=== PATIENT | male | born 1975 | race Caucasian/White ===

== ENCOUNTER 2017-01-30 20:02 | Emergency (ER) | payer BC ==
--- NOTE | 2017-01-30 20:17 | UC ---
Upper Extremity HPI - HPI Summary HPI Summary: 41 year old male presents with left shoulder pain. - History of Current Complaint Chief Complaint: UCUpperExtremity Stated Complaint: LT SHOULDER COMPLAINT Time Seen by Provider: 01/30/17 20:10 - Allergies/Home Medications Allergies/Adverse Reactions: Allergies Allergy/AdvReac Type Severity Reaction Status Date / Time Aspirin AdvReac See Comment Verified 12/14/16 16:17 PMH/Surg Hx/FS Hx/Imm Hx Previously Healthy: Yes - Surgical History Surgical History: Yes Surgery Procedure, Year, and Place: right hip replacement,appy - Family History Known Family History: Positive: Cardiac Disease, Hypertension - Social History Alcohol Use: None Substance Use Type: None Smoking Status (MU): Never Smoked Tobacco Have You Smoked in the Last Year: No Review of Systems Constitutional: Negative Skin: Rash - left shoulder Eyes: Negative ENT: Negative Respiratory: Negative Cardiovascular: Negative Gastrointestinal: Negative Genitourinary: Negative Motor: Negative Neurovascular: Negative Musculoskeletal: Other: - left shoulder pain Neurological: Negative Psychological: Negative All Other Systems Reviewed And Are Negative: Yes Physical Exam Triage Information Reviewed: Yes Vital Signs: Initial Vital Signs Temp 36.6 C 01/30/17 20:05 Pulse 90 01/30/17 20:05 Resp 17 01/30/17 20:05 Eye Exam: Normal ENT Exam: Normal Dental Exam: Normal Neck exam: Normal Neck: Positive: 1 Respiratory Exam: Normal Cardiovascular Exam: Normal Abdominal Exam: Normal Musculoskeletal Exam: Normal Musculoskeletal: Positive: Other: - left shoulder pain Neurological Exam: Normal Psychological Exam: Normal Skin: Positive: rashes - left shoulder rash Upper Extremity Course/Dx - Differential Dx/Diagnosis Provider Diagnoses: left shoulder pain. left shoulder rash Discharge - Discharge Plan Condition: Stable Disposition: HOME Prescriptions: DOXYcycline CAP(*) [DOXYcycline 100MG CAP(*)] 100 mg PO BID #56 cap Methylprednisolone [Medrol Dosepak 4 MG*] 4 mg PO .SEE CYN INSTRUCTION #21 tab Triamcinolone 0.1% CREAM(NF) [Kenalog 0.1% Cream (NF)] 1 applic TOPICAL BID PRN #90 gm PRN Reason: Itching Patient Education Materials: Shoulder Sprain (ED), Shoulder Pain (ED), Acute Rash (ED) Referrals: Melissa Mays MD [Primary Care Provider] - Del Carver MD [Medical Doctor] -
--- NOTE | 2017-01-30 20:46 | RAD ---
INDICATION: Left shoulder pain after lifting weights COMPARISON: None TECHNIQUE: Routine frontal, Y and axial views were obtained. FINDINGS: The bony structures, joint spaces, and soft tissues are normal for age. IMPRESSION: NEGATIVE EXAMINATION.
[2017-01-30] MEDS ORDERED: DOXYcycline CAP(*) 100 MG PO ONE (21:10)
[2017-01-30] MEDS ORDERED: predniSONE TAB* 20 MG PO ONE (21:10)
[2017-02-01 23:02] LABS: Lyme Disease IgG Ab WB Negative (Negative)
== END 2017-01-30 21:20 | disposition home or self-care (01) ==
LOC: UCEAST 20:02
DX: M25.512 Pain in left shoulder (principal); R21 Rash and other nonspecific skin eruption
CPT/HCPCS: 86617; 86618; 99211; 99212; A9270-GY; G0463; J7512